=== PATIENT | male | born 1985 | race Caucasian/White ===

== ENCOUNTER 2021-06-23 17:28 | Outpatient (CLI) | payer SELFPAY ==
--- NOTE | 2021-06-23 17:35 | CT_ITS ---
We are attempting to reach an attending provider to discuss findings. An addendum with communication details will be sent when the communication is complete. STUDY: CT ABDOMEN AND PELVIS WITH CONTRAST REASON FOR EXAM: Male, 35 years old. LLQ pain, suspect hernia RADIATION DOSAGE (If Supplied By Facility): CTDIvol = ( 11.73 ) mGy, DLP = ( 606.94 ) mGycm TECHNIQUE: Transaxial images were obtained from the dome of the diaphragm to the symphysis pubis without oral contrast. IV 100mL Isovue-370 was administered. Sagittal and coronal images were reconstructed. Individualized dose optimization techniques were used for this CT. COMPARISON: None. FINDINGS: LOWER CHEST: Unremarkable. LIVER: Unremarkable. GALLBLADDER/BILE DUCTS: Unremarkable. PANCREAS: Unremarkable. SPLEEN: Unremarkable. ADRENAL GLANDS: Unremarkable. KIDNEYS / URETERS: Unremarkable. BOWEL / MESENTERY: There is mild stranding in the left lower abdomen deep to the inguinal hernia. No bowel obstruction. APPENDIX: Not identified. PERITONEUM: No free air. No free fluid. VESSELS: Abdominal aorta is normal caliber. RETROPERITONEUM: Unremarkable. REPRODUCTIVE ORGANS: Unremarkable. BLADDER: Unremarkable. ABDOMINAL WALL: Moderate sized left inguinal hernia containing fat and vessels, no bowel, with mild stranding in the hernia sac. Very small right inguinal hernia containing only fat, no bowel without stranding. A few prominent inguinal lymph nodes bilaterally. BONES: No acute abnormality. OTHER: None. CT/Abdomen/Pelvis W IV Cont ONLY IMPRESSION: Fat-containing left inguinal hernia with findings that may be consistent with incarceration. Electronically Signed: Vannesa Johnson MD at 4:35 EDT ,
== END 2021-06-23 23:59 | disposition home or self-care (01) ==
PROVIDERS: PCP Physician Assistant; Visit Provider Surgery
DX: R10.9 Unspecified abdominal pain (principal)
CPT/HCPCS: 74177; Q9967

== ENCOUNTER 2021-08-12 05:41 | Day surgery (SDC) | payer SELFPAY, OTHER ==
[2021-08-12] VITALS (8 sets, daily range): BP systolic 104–140; BP diastolic 69–96; PULSE 51–96; RESP 16–18; TEMP 36.7–37; O2SAT 95–99; BMI 26.4
[2021-08-12] MEDS: Lactated Ringers 1,000 ML 15 ML IV ×2 (06:10→12:59)
--- NOTE | 2021-08-12 07:21 | HP.PCM_ITS ---
History and Physical Date of Admission: 08/12/21 Date of Service: 07/22/21 MR#:[id number]: ELISE HUANG [facility] #:[id number]:[id number] Provider:Dr. Ramírez Thomas MDAge/Sex: 35/M [facility] [place] Intake Vital Signs 07/22/21 09:32 Height 5 ft 5 in Weight: 159 lb BMI 26.4 BP 119/81 H Blood Pressure Location Rt brachial Position Sitting Respiration 16 Pulse 70 Pulse Source NIBP Temp 98.1 F Temp Source Temporal Pulse Oximetry (%) 96 Oxygen Delivery Method room air Intake Visit Reasons: FU TO [facility] INGUINAL HERNIA REPAIR; RIGHT & LEFT Chief Complaint: Left Inguinal Hernia Fire Regulator Required: No Is patient in pain?: No Allergies No Known Allergies Allergy (Verified 07/22/21 09:33) Medications NK 06/16/21 [History Confirmed 07/22/21] PFSH Surgical History History of appendectomy Social History Smoking Status: Never smoker alcohol intake: never substance use type: does not use HPI HPI HPI: ELISE HUANG, is a 35 M who presents to the office today for left inguinal hernia. He presents today for update of his history and physical anticipation of surgery on August 12, 2021. In the interim since his last visit, he completed a CT of the abdomen pelvis which demonstrated bilateral inguinal hernias, but left was substantially larger than the right. Today patient states that there is no no increased pain from his hernias. He confirms that his employer has been working with him to allow him to adhere to his lifting restrictions. He does not believe the hernia has grown in size since his last visit. He confirms that his bowel habits have been regular. Below is recapitulated from patient's initial visitation for ease of review. This finding was first noticed by patient a couple months ago. Patient is not able to recall how this occurred. He states that it seems to have occurred gradually, beginning as a small bulge, but over the last month has become bigger and more painful. He states that this pain is provoked by heavy lifting. 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 He denies any change with his bowel movements which she insists are regular and denies any unexplained nausea or vomiting episodes. He does question whether one event when he was 13 or 14 years old may be the cause of his symptoms. He states that he was kicked by a horse in this location, but denies any problems over the last 20 some years. Patient has a personal history of smoking, but states this was infrequent when he did and he has now stopped. Has no personal history of recurrent cutaneous infections including staph. Pertinent surgical history includes: Open appendectomy age 12 or 13 ROS General General: No weight change, appetite, fatigue, colon cancer, breast cancer or weakness HEENT HEENT: No difficulty swallowing, eye injury, eye surgery, swollen glands or hoarseness Endo Endocrine: No thyroid disease, diabetes mellitus, thyroid cancer, Hair loss, heat intolerance or cold intolerance Skin Skin: No rash or changing moles Musc Musculoskeletal: No back problems, arthritis, rheumatoid arthritis, gout or joint pain Cardio Cardiovascular: No murmur, pacemaker, heart disease, atrial fibrillation, high blood pressure, heart attack, heart stent, palpitations, shortness of breat with exertion or chest pain Psych Psychiatric: No depression, anxiety or hearing voices Resp Respiratory: No shortness of breath, No sleep apnea, No cough, No COPD, No asthma, No emphysema and No wheezing Gastro Gastrointestinal: No abdominal pain, No nausea or vomiting, No diarrhea, No constipation, No blood in stool, No acid reflux, No hemorrhoids, No ulcers, No gallbladder problem and No black,tarry stools Paresh Hematologic: No blood thinners, No blood disorders, No bleeding, No anemia and No blood clots Neuro Neurologic: No system reviewed and no additional complaints, except as document ed, No as per HPI, No abnormal gait, No abnormal hearing, No abnormal movements, No abnormal speech, No behavioral changes, No burning sensations, No confusion, No convulsions, No disequilibrium, No dizziness, No localized weakness, No frequent falls, No headache(s), No lack of coordination, No loss of vision, No memory loss, No numbness, No other visual disturbances, No radicular pain, No restless legs, No sensory deficit, No syncope, No tingling, No tremor(s), No weakness and No other Exam Const General: cooperative and no acute distress Orientation: alert, awake and oriented x3 Scrotum: inguinal hernia bilaterally (Left greater than right and hernia contents are soft/reducible) Assessment and Plan Assessment and Plan (1) Bilateral inguinal hernia: Status: Acute Comment: This is a 35-year-old male, otherwise healthy, who has bilateral inguinal hernias. His left, larger hernia is the only symptomatic hernia. He denies any increase in his symptoms since his last visit. He believes that hernia has remained stable in size and he has been able to observe the recommended lifting restrictions. We reviewed his CT of the abdomen and pelvis and discussed the procedure to be performed. I advised him to have someone accompany him the day of surgery and we again reviewed the expectation for 4 to 6 weeks of lifting restrictions postoperatively to give time for adequate healing. He denies any further questions related to the procedure or the post procedure expectations. Plan - Dr. Ramírez Thomas MD: ? Robotic inguinal hernia repair (bilateral) slated for August 12, 2021 I have re-examined the patient. There are no clinical changes since date of exam. Neither patient nor his significant other have any questions. Therefore we will proceed for robotic bilateral inguinal hernia repair as scheduled.
[2021-08-12] MEDS: Cefazolin 2 GM in 0.9% Normal Saline 100 ML IV (07:34)
[2021-08-12] MEDS: Bupivacaine Mpf 0.5% 30 ML VIAL (07:53)
--- NOTE | 2021-08-12 12:17 | EX.PCM.DISCH ---
Discharge Instructions Diet Discharge Diet: No restrictions Activity Discharge Activity: May Not Drive (While taking narcotic pain medication) and May Shower Ice area for (Minutes): 20 Lifting Restrictions: No lifting greater than 15 pounds for the next 4 weeks Dressing / Incision Call your doctor if your incision/area has: Continuous Slow Oozing, Increased Pain/ Swelling, Increased Redness, Foul Smelling Discharge and Swelling at the incision site Call your doctor if you observe: Fever of 101 or Higher Change Dressing in: 2 days (Please leave Steri-Strips intact until they fall off spontaneously or are taken off at your follow-up visit) Cleanse incision/area with: Soap & Water and Keep Dressing Clean & Dry Follow Up Care Please Follow Up With: Ramírez Thomas MD When: 1 week postop Test Results: Test results from this visit will be discussed in further detail at your follow-up appointment, if applicable. Discharge Plan Admission Primary Reason for Your Visit: Inguinal hernia repair Attending Provider: Ramírez Thomas Primary Care Provider: Shreyas Harper Instructions Patient Instructions: Hernia Repair Surgery Discharge Orders/Prescriptions Prescriptions: New hydrocodone-acetaminophen 5-325 mg tablet 1 tab PO Q6H PRN (Reason: pain) 5 Days Qty: 10 RF: 0 Referrals / Follow Up: Shreyas Harper PA [Primary Care Provider] - Disposition Disposition (needs filled in before D/C Order can be placed): Home, Self Care
--- NOTE | 2021-08-12 12:23 | OP.PCM_ITS ---
Report of Operation Date of Procedure: 08/12/21 Pre-Operative Diagnosis: Bilateral inguinal hernias (indirect Post-Operative Diagnosis: Same Surgery/Procedure Performed:: Robotic repair of bilateral inguinal hernias with mesh placement (Bard 3D max size large?both) Description of Surgical Findings:: ? 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 Reddening of the small bowel adjacent to the right inguinal hernia defect, but grossly viable Surgeon: Ramírez Thomas materials supervisor: Ld Hameed materials supervisor: Reina Perry Type of Anesthesia: General/Supplemental Anesthesiologist: Krzysztof Joshua Specimen's removed: NA Drains: NA Estimated Blood Loss (mL): 15 Description of Procedure: After appropriate identification the preoperative holding area the patient was brought to the operating room where he was positioned supine on the operating table. Preoperative antibiotics were completed and the patient was administered a general anesthetic. Patient's abdomen was then prepped and draped in usual sterile fashion. Formal timeout followed to confirm patient and procedure. Procedure was begun with an optical entry facilitated by Veress insufflation at Castro's point. Once pneumoperitoneum reached a set point pressure of 15 mmHg a right paramedian incision was made and a 8 mm robotic trocar was placed with a careful Optiview technique. Follow-up laparoscopic investigation revealed no inadvertent injury to the viscera below. A second port was placed a hand's breath right of this index port under laparoscopic visualization. Then the Veress needle was withdrawn (after confirming no inadvertent injury from its placement) and a third and final robotic port was placed through this site. Patient was positioned in slight Trendelenburg and the robot was docked in standard fashion. Robotically a peritoneal flap was created on the right and was bluntly dissected to expose the medial parietal compartment and lateral visceral compartments. Medially I could visualize the pubic tubercle and Junior's ligament while laterally I extended the dissection down to the level of the ASIS. The hernia sac was identified and from the cord structures deeply with selective use of monopolar energy. A large cord lipoma was identified and removed with monopolar energy. The peritoneal flap was inspected to ensure that there was no pulling of the cord structures or the viscera deeply over the psoas using the pull test. Then attention was turned to the patient's left side where there was evidence of chronically incarcerated omentum. This was removed with manual traction using the robot. Again, a peritoneal flap was created on this side and dissection was carried down in similar fashion to Junior's ligament medially and laterally over the psoas at the same depth. There was substantially more scarring on this inguinoscrotal hernia within an obvious indirect defect. Manual traction was applied to the cord structures and selective electrocautery was used to free the cord from the fibrinous scar tissue?particularly medially while taking care to avoid injury to the epigastric vessels. Ultimately, I was able to visualize complete reduction of the hernia sac and again performed the pull test to ensure that there is no tenting of structures that may compromise the future mesh lie. Once satisfied, a Bard 3D max, size large, heavy weight mesh was placed into the abdomen along with suture. It was positioned within the preperitoneal pocket so that there was good medial and inferior overlap. It was then tacked to the abdominal wall at the pubic tubercle and laterally in a partial-thickness bite of the abdominal wall using a 3-0 Ethibond suture. The peritoneal flap was then closed with a running 3 oh V-Loc suture taking care to conceal the barbs of the suture beneath the peritoneum. As this closure proceeded, I hung the hernia sac vertically in front of several inadvertent peritoneal rents. Once the flap closure was complete, I undertook repair of peritoneal defects with 3-0 Vicryl. I then transitioned to the right side and obtained a second large, heavyweight 3D max mesh. Mesh was positioned into the preperitoneal space and tacked in similar fashion has not been done on the left side using 3-0 Ethibond. There were several peritoneal defects here as well that also required closure with Vicryl. During the flap closure I did note some curling of the inferior edge of the mesh and reached through one of the peritoneal defects (before closure) to flatten this out before closure completion. With the peritoneal defects closed, sutures were systematically removed from the peritoneum and the pneumoperitoneum was evacuated before removing the trocars. The port sites were closed at the skin with running 4-0 Monocryl in a subcuticular fashion. Steri-Strips and OpSite's were used as dressings. Patient's testicles were returned to the scrotum and a supportive jockstrap was fitted. Patient was then awoken from anesthetic and transferred to PACU for ongoing recovery. Admit VTE Documentation VTE Mechan Device Prophylaxis: SCD's
[2021-08-12] MEDS: HYDROcodone Bitartrate/Apap 5/325 Tablet PO (13:31)
--- NOTE | 2021-08-12 15:35 | SUR.PHASEII ---
Per Dr Thomas, pt is ok to d/c when criteria is met.
== END 2021-08-12 15:36 | disposition home or self-care (01) ==
LOC: SDC 05:47 → AC 05:48
PROVIDERS: PCP Physician Assistant; Referring Provider Surgery; Visit Provider Surgery
PROC: (CPT 49650; principal; 2021-08-12 07:10)
DX: K40.00 Bilateral inguinal hernia, with obstruction, without gangrene, not specified as recurrent (principal)
CPT/HCPCS: 49650; S2900; 00840; J7120; C1781; J2405